=== PATIENT | male | born 1960 | race Caucasian/White ===

== ENCOUNTER → 2016-02-09 | Outpatient (CLI) | payer BC ==
[~2016-02-09] MED LIST: ETOD400T PO; IBUP-103 PO; MULT-506 PO
[2016-02-09 09:24] LABS: HEMATOCRIT 44.6 % (42-52); MEAN CELL VOLUME 87.5 fL (80-100); MEAN CORPUSCULAR HEMOGLOBIN 30.8 pg (25-34); MEAN CORPUSCULAR HGB CONC 35.2 g/dl (32-36); MEAN PLATELET VOLUME 9.7 fL (7.4-10.4); PLATELET COUNT 312 K/uL (130-400)
[2016-02-09 09:35] LABS: ALT/SGPT 36 U/L (12-78); BLOOD UREA NITROGEN 19 mg/dl (7-18); BUN/CREATININE RATIO 16.8 (10-20); CALCIUM 8.8 mg/dl (8.5-10.1); CARBON DIOXIDE 28 mmol/L (21-32); CHLORIDE 102 mmol/L (98-107); CHOLESTEROL 218 mg/dl (0-200); GLUCOSE 95 mg/dl (70-99); POTASSIUM 4.4 mmol/L (3.5-5.1); SODIUM 139 mmol/L (136-145)
[2016-02-09 09:46] LABS: ALB/GLOB RATIO 1.1 (0.9-2); ALKALINE PHOSPHATASE 128 U/L (45-117); AST/SGOT 21 U/L (15-37); CHOLESTEROL/HDL RATIO 4.1; HDL CHOLESTEROL 53 mg/dl; LDL CHOLESTEROL CALCULATED 135 mg/dl; TRIGLYCERIDES 150 mg/dl (0-150); VERY LOW DENSITY LIPOPROT CALC 30 mg/dl
[2016-02-09 09:52] LABS: ESTIMATED AVERAGE GLUCOSE 123 mg/dl; HA1C FLAG Normal (Normal)
== END | disposition home or self-care (01) ==
LOC: C.LAB 07:07
PROVIDERS: ATTEND Internal Medicine Geriatric Medicine
DX: J30.9 Allergic rhinitis, unspecified (principal); Z87.09 Personal history of other diseases of the respiratory system; G47.33 Obstructive sleep apnea (adult) (pediatric); E78.5 Hyperlipidemia, unspecified; R73.9 Hyperglycemia, unspecified; M19.90 Unspecified osteoarthritis, unspecified site; R74.8 Abnormal levels of other serum enzymes

== ENCOUNTER → 2017-03-17 | Outpatient (CLI) | payer OTHER ==
[2017-03-17 18:10] LABS: ALBUMIN 3.8 gm/dl (3.4-5.0); ALT/SGPT 34 U/L (12-78); AST/SGOT 18 U/L (15-37); BLOOD UREA NITROGEN 20 mg/dl (7-18); CALCIUM 8.8 mg/dl (8.5-10.1); CARBON DIOXIDE 28 mmol/L (21-32); CHOLESTEROL 185 mg/dl (0-200); CREATININE 1.01 mg/dl (0.60-1.40); GLUCOSE 94 mg/dl (70-99); SODIUM 134 mmol/L (136-145)
[2017-03-17 18:14] LABS: ALKALINE PHOSPHATASE 117 U/L (45-117); LDL CHOLESTEROL CALCULATED 102 mg/dl; TOTAL PROTEIN 7.2 gm/dl (6.4-8.2)
[2017-03-17 18:27] LABS: HEMOGLOBIN A1C 5.8 % (4.5-5.6)
== END | disposition home or self-care (01) ==
LOC: C.LAB 16:51
PROVIDERS: ATTEND Internal Medicine Geriatric Medicine
DX: Z00.00 Encounter for general adult medical examination without abnormal findings (principal); J30.9 Allergic rhinitis, unspecified; G47.33 Obstructive sleep apnea (adult) (pediatric); E78.5 Hyperlipidemia, unspecified; R73.9 Hyperglycemia, unspecified; M88.9 Osteitis deformans of unspecified bone; I10 Essential (primary) hypertension; J45.30 Mild persistent asthma, uncomplicated

== ENCOUNTER 2021-07-10 06:28 | Observation (INO) ==
--- NOTE | 2021-06-05 11:22 | PAT Medication Instructions ---
Medication Instructions Date of Service June 05, 2021 Home Medications Medication Instructions Recorded fluticasone propionate 44 1 inh INH QAM #31.8 g 01/16/21 mcg/actuation HFA aerosol inhaler (Flovent HFA) losartan 25 mg tablet 25 mg PO QPM #90 tab 03/06/21 albuterol sulfate 90 mcg/actuation 1 - 2 puff INH Q4H PRN #3 inhaler 03/11/21 aerosol inhaler (ProAir HFA) fluticasone propionate 50 1 spray INTNAS QPM #48 g 03/25/21 mcg/actuation nasal spray,suspension (Flonase Allergy Relief) multivitamin (Daily Multi-Vitamin) 1 tab PO QAM omega-3 fatty acids 1,000 mg capsule (Fish Oil Concentrate) 1,000 mg PO QAM fluticasone propionate 44 mcg/actuation HFA aerosol inhaler (Flovent HFA) 1 inh INH QAM losartan 25 mg tablet 25 mg PO QPM albuterol sulfate 90 mcg/actuation aerosol inhaler (ProAir HFA) 1 - 2 puff INH Q4H PRN fluticasone propionate 50 mcg/actuation nasal spray,suspension (Flonase Allergy Relief) 1 spray INTNAS QPM STOP taking 2 weeks before surgery omega-3 fatty acids 1,000 mg capsule (Fish Oil Concentrate) 1,000 mg PO QAM DO NOT take the morning of surgery multivitamin (Daily Multi-Vitamin) 1 tab PO QAM Take morning of surgery With a small sip of water, OTHERWISE NOTHING TO EAT OR DRINK AFTER MIDNIGHT: fluticasone propionate 44 mcg/actuation HFA aerosol inhaler (Flovent HFA) 1 inh INH QAM albuterol sulfate 90 mcg/actuation aerosol inhaler (ProAir HFA) 1 - 2 puff INH Q4H PRN (use if needed; please bring with you to hospital day of surgery if possible) Take evening before surgery losartan 25 mg tablet 25 mg PO QPM albuterol sulfate 90 mcg/actuation aerosol inhaler (ProAir HFA) 1 - 2 puff INH Q4H PRN (if needed) fluticasone propionate 50 mcg/actuation nasal spray,suspension (Flonase Allergy Relief) 1 spray INTNAS QPM Other Notes If you have any questions please call us at [phone] or [phone] or [phone] or [phone]
--- NOTE | 2021-06-09 13:18 | Anesthesiology Consultation ---
Date of Service June 09, 2021 Assessment & Plan (1) Encounter for pre-operative examination: COVID screening: Per assessment on 06/09: No known COVID-19 positive contacts or current COVID-19 related symptoms. Travel screen negative. Patient vaccinated. Surgeon arranging preop COVID testing. Awaiting results. Chart Review Chart Review: Acceptable Risk for Surgery and Patient seen in Pre Admission Testing Teaching & Discussion Pre-Anesthesia Teaching/Discussion Notes: Instructed NPO after midnight before surgery,except medications with 15 cc of water. Medication instructions pro vided according to the PAT guidelines. History Surgery Operation Date: 07/10/21 10:40 Proposed Procedures p Left Total Knee Arthroplasty - Raman Freire, Height/Weight Height: 6 ft 3.5 in Weight: 115.6 kg Allergies Allergy/AdvReac Type Severity Reaction Status Date / Time Aminoglycosides AdvReac Mild skin Verified 06/05/21 08:00 irritation bacitracin AdvReac Mild skin Verified 06/05/21 08:00 irritation neomycin AdvReac Mild skin Verified 06/05/21 08:00 irritation polymyxin B AdvReac Mild skin Verified 06/05/21 08:00 irritation Medications Home Medications Medication Instructions Recorded Confirmed Last Taken multivitamin (Daily Multi-Vitamin) 1 tab PO QAM 07/11/18 06/05/21 04/12/20 omega-3 fatty acids 1,000 mg 1,000 mg PO QAM 05/30/20 06/05/21 Unknown capsule (Fish Oil Concentrate) fluticasone propionate 44 1 inh INH QAM #31.8 g 01/16/21 06/05/21 Unknown mcg/actuation HFA aerosol inhaler (Flovent HFA) losartan 25 mg tablet 25 mg PO QPM #90 tab 03/06/21 06/05/21 Unknown albuterol sulfate 90 mcg/actuation 1 - 2 puff INH Q4H PRN #3 inhaler 03/11/21 06/05/21 Unknown aerosol inhaler (ProAir HFA) fluticasone propionate 50 1 spray INTNAS QPM #48 g 03/25/21 06/05/21 Unknown mcg/actuation nasal spray,suspension (Flonase Allergy Relief) Past Medical History Medical History Asthma Back pain s/p fall (on ice) Hx of squamous cell carcinoma Hypertension Localized osteoarthritis of left knee Prediabetes Diet control Sleep apnea CPAP (compliant) Exercise / Class Metabolic Activity II 4-5 Yardwork/Stairs/Walk up hill (one FS (no CP, no SOB)) Past Family History Family History Mother COPD (chronic obstructive pulmonary disease) Sister Breast cancer Diabetes Other Asthma Hyperlipemia Hypertension No family history of adverse response to anesthesia Thyroid disorder Denies family history of Ovarian cancer Prostate cancer Myocardial infarction Colorectal cancer Past Surgical History Surgical History History of colonoscopy History of wisdom tooth extraction Past Anesthesia History No Hx of Anesthesia Complications and No Family Hx of Anesthesia Complications History of PONV No Hx of PONV and No Hx of Motion Sickness Social History Smoking Status: Never smoker Do You Dip or Chew Tobacco: No Hx Alcohol Use: Yes Alcohol type: beer, wine and hard liquor alcohol intake frequency: a few times a week Hx Substance Use: No substance use type: does not use Review of Systems Patient denies chest pain, shortness of breath, dyspnea on exertion, fever, chills, cough, wheezing, palpitations. Physical Exam Vital Signs VITALS BP 127/74 P 72 TEMP 98.5 SP02 94%RA RESP 16 PHYSICAL Full cervical extension range of motion. Full TMJ range of motion. TMD 3.5 finger breaths Mallampati Score 3 Dentition: intact, + crowns Lungs: clear throughout to auscultation Cardiac: regular rate and rhythm, no murmurs noted Spine: normal Carotid arteries: negative bruit Extremities: no edema Lab Results Anesthesia Preop Results Results Anesthesia Widget: WBC 8.07 K/uL (4.8-10.8) 06/09/21 Hgb 14.9 g/dL (14.0-18.0) 06/09/21 Hct 44.0 % (42-52) 06/09/21 Plt 350 K/uL (130-400) 06/09/21 Na 139 mmol/L (136-145) 06/09/21 K 4.1 mmol/L (3.5-5.1) 06/09/21 Cl 102 mmol/L (98-107) 06/09/21 CO2 30 mmol/L (21-32) 06/09/21 BUN 19 mg/dl (6-23) 06/09/21 Creat 1.02 mg/dl (0.6-1.4) 06/09/21 Glucose Level 101 mg/dl (70-99(Fasting)) H 06/09/21 PT 10.3 Seconds (9.0-12.0) 06/09/21 PTT 26.8 Seconds (21.0-31.0) 06/09/21 INR 1.0 (0.9-1.1) 06/09/21 Blood Type A Positive 06/09/21 Antibody Screen NEGATIVE 06/09/21 Testing Electrocardiogram Date: 06/09/21 NSR at 67bpm. LAFB. unconfirmed report. Chest X-Ray Date: 06/09/21 FINDINGS: PA and lateral chest radiographs are obtained. No prior studies are available for comparison at the time of dictation. The heart is top normal for projection noting atherosclerotic calcification of the thoracic aorta. There is mild bibasilar scarring/atelectasis. A punctate calcified granulomas are suspected. The lungs and pleural spaces are otherwise clear. There is no pneumothorax. The bony thorax appears intact. IMPRESSION: No active disease in the chest.
--- NOTE | 2021-07-09 14:09 | History & Physical Report ---
Date of Service July 09, 2021 Assessment & Plan (1) Localized osteoarthritis of left knee: We will proceed with a left total knee arthroplasty. Postoperatively he will be started on aspirin for DVT prophylaxis and kept overnight in the hospital for postoperative medical management. He plans to do outpatient physical therapy at [facility] upon discharge. History of Present Illness Chief Complaint: Osteoarthritis of the left knee. Primary Care Provider: Raman JaegerDO Jackson is a pleasant 60-year-old male who has been dealing with chronic worsening left knee pain. He has been following up with my partner Dr. Hawkins. X-rays have been diagnostic for advanced osteoarthritis of the left knee. He has tried injections. He has done some exercises and therapy. He has been taking anti- inflammatories without relief. He has done activity modifications. He is unable to do activities he enjoys. He has elected proceed with a left total knee arthroplasty.. Allergies Allergy/AdvReac Type Severity Reaction Status Date / Time Aminoglycosides AdvReac Mild skin Verified 06/05/21 08:00 irritation bacitracin AdvReac Mild skin Verified 06/05/21 08:00 irritation neomycin AdvReac Mild skin Verified 06/05/21 08:00 irritation polymyxin B AdvReac Mild skin Verified 06/05/21 08:00 irritation Home Medications Medication Instructions Recorded Confirmed Type multivitamin (Daily Multi-Vitamin) 1 tab PO QAM 07/11/18 06/05/21 History omega-3 fatty acids 1,000 mg 1,000 mg PO QAM 05/30/20 06/05/21 History capsule (Fish Oil Concentrate) fluticasone propionate 44 1 inh INH QAM #31.8 g 01/16/21 06/05/21 Rx mcg/actuation HFA aerosol inhaler (Flovent HFA) losartan 25 mg tablet 25 mg PO QPM #90 tab 03/06/21 06/05/21 Rx albuterol sulfate 90 mcg/actuation 1 - 2 puff INH Q4H PRN #3 inhaler 03/11/21 06/05/21 Rx aerosol inhaler (ProAir HFA) fluticasone propionate 50 1 spray INTNAS QPM #48 g 03/25/21 06/05/21 Rx mcg/actuation nasal spray,suspension (Flonase Allergy Relief) Past Med/Surg History Medical History Asthma Back pain s/p fall (on ice) Hx of squamous cell carcinoma Hypertension Localized osteoarthritis of left knee Prediabetes Diet control Sleep apnea CPAP (compliant) Surgical History History of colonoscopy History of wisdom tooth extraction Family History Mother COPD (chronic obstructive pulmonary disease) Sister Breast cancer Diabetes Other Asthma Hyperlipemia Hypertension No family history of adverse response to anesthesia Thyroid disorder Denies family history of Ovarian cancer Prostate cancer Myocardial infarction Colorectal cancer Social History Smoking Status: Never smoker Second Hand Exposure: Yes (MOTHER SMOKED); Hx Alcohol Use: Yes Alcohol type: beer, wine and hard liquor Alcohol Intake Frequency Comment: SOCIALLY Hx Substance Use: No Preferred Language: [place] Communication Ability: Effective Visual Impairment: Limited Hearing Ability: Normal Biomedical Engineering Technician Required: No Beliefs That Will Affect Care: Pentecostal Pentecostal Beliefs: CONGREGATIONAL marital status: Current Living Situation: Spouse current occupational status: employed current occupation: [employer] How many Children do You have: 2 Feels Safe at Home: Yes Childhood Exposure to Second-Hand Smoke: Yes caffeine: Yes (coffee, tea) Dental Care, Regularly: Yes Physical Activity Frequency: Daily Seatbelt Use: always Sunscreen Use: Yes Assistive Devices: Brace/Splint/Immobilizer, Contacts, CPAP and Glasses Review of Systems All systems reviewed & are unremarkable except as noted in HPI & below. Physical Exam On physical examination of the left knee, he has a slight varus deformity. He has tenderness palpation of the distal medial femoral condyle and over the medial joint line. Constitutional WD/WN, vitals as above Eyes PERRL, conjunctivae normal, anicteric sclerae ENMT external ear and nose normal, oropharynx normal Neck trachea midline, no thyromegaly Respiratory normal respiratory effort Cardiovascular RRR, no murmur, no edema Gastrointestinal (Abdomen) normal bowel sounds, soft, nontender, no hepatosplenomegaly Psychiatric A+Ox3, euthymic affect Results & Data Results & Data Laboratory Results . Diagnostic Findings X-rays of the left knee show advanced osteoarthritis with joint space narrowing, osteophyte formation, and [id number] articulation. PG Care Time/CCT Total # of Minutes Spent Total Time Spent with Patient: Total time spent is greater than 50% in coordination of care (as documented) at patient's floor/unit and/or counseling patient: Coding Level of Care Code None Diagnoses Localized osteoarthritis of left knee M17.12
--- NOTE | 2021-07-10 06:22 | History & Physical Bridge Note ---
Date of Service July 10, 2021 History & Physical Bridge Note I have examined the patient, reviewed the History & Physical and in the interval since the performance of the History & Physical I have noted the following changes of clinical significance: no changes noted
[~2021-07-10 06:28] MED LIST changes: +ACETAMINOPHEN 500 MG TAB PO SCH; -ETOD400T PO; +FAMOTIDINE 20 MG TAB PO SCH; +GABAPENTIN 600 MG DOSE PO SCH; -IBUP-103 PO; +Ketorolac (*for OR use only*) 30 MG, dexAMETHasone 4 MG, KETAMINE HCL (**OR use only) 1... INFIL SCH; +LR 500ML BOLUS, THEN 15ML/HR IV SCH; +LR 60ML/HR IV SCH; -MULT-506 PO; +Scopolamine 1 MG TDSY TD SCH; +TRANEXAMIC ACID 1,000 MG **IV Intra-op IV SCH; +TRANEXAMIC ACID 1,000 MG **IV Pre-op IV SCH; +TRANEXAMIC ACID 100 MG/ML 10 ML VIAL IV STA; +ceFAZolin 2000MG 2,000 MG/15 ML SYR IV SCH; +dexAMETHasone 4 MG TAB PO SCH
[2021-07-10] MEDS ORDERED: PROPOFOL IV EMULSION 10 MG/ML 20 ML VIAL IV ONE ×3 (06:41→09:21)
[2021-07-10] MEDS ORDERED: fentaNYL citrate 100 MCG/2 ML VIAL ONE (06:42)
[2021-07-10] MEDS ORDERED: DEXAMETHASONE SOD INJ 4 MG/ML VIAL ONE ×2 (06:42→06:46)
[2021-07-10] MEDS ORDERED: ONDANSETRON INJ 2 MG/ML 2 ML VIAL ONE (06:42)
[2021-07-10] MEDS ORDERED: MIDAZOLAM HCL 1 MG/ML 2ML VIAL ONE ×2 (06:42→06:49)
[2021-07-10] MEDS ORDERED: ORTHO JOINT ANESTHETIC ONE (07:08)
[2021-07-10] MEDS ORDERED: ROPIVACAINE 0.5% 5 MG/ML 30 ML VIAL ONE (07:09)
[2021-07-10] MEDS ORDERED: BUPIVACAINE 0.5 % 5 MG/1 ML PF 10ML VIAL ONE (07:10)
[2021-07-10] MEDS ORDERED: EPINEPHrine INJ 1 MG/ML AMP ONE (07:10)
[2021-07-10] MEDS ORDERED: LABETALOL HCL IV 5 MG/ML 20ML IV PRN (07:37)
[2021-07-10] MEDS ORDERED: HYDROmorphone INJ 1 MG/ML SYRINGE IV PRN (07:37)
[2021-07-10] MEDS ORDERED: HYDROmorphone INJ 2 MG/ML SYR/VIAL IV PRN (07:37)
[2021-07-10] MEDS ORDERED: ONDANSETRON INJ 2 MG/ML 2 ML VIAL IV PRN ×2 (07:37→11:57)
[2021-07-10] MEDS ORDERED: PHENYLEPHRINE 100MCG/ML 5ML SYR IV PRN (07:37)
[2021-07-10] MEDS ORDERED: ATROPINE SULFATE 0.1 MG/ML 10ML SYR IV PRN (07:37)
[2021-07-10] MEDS ORDERED: fentaNYL citrate 100 MCG/2 ML VIAL IV PRN (07:37)
[2021-07-10] MEDS ORDERED: ePHEDrine sulfate 50 MG/ML AMP IV PRN (07:37)
[2021-07-10] MEDS ORDERED: PHENYLEPHRINE HCL 10 MG/ML VIAL ONE (08:43)
[2021-07-10] MEDS ORDERED: ePHEDrine sulfate 50 MG/ML AMP ONE ×2 (08:43→08:59)
--- NOTE | 2021-07-10 09:30 | Operative Report ---
PG Post Operative Report Pre & Post Diagnosis Operation Date: 07/10/21 08:00 Pre-Op Diagnosis: Left Knee Osteoarthritis Post-Op Diagnosis: Left Knee Osteoarthritis I identified the patient and participated in the time-out.: Yes Procedure Operation Date: 07/10/21 08:00 Actual Procedures p Left Total Knee Replacement(Left) - Raman Freire DO Surgeon Raman Freire DO Traveling Phlebotomist Raman Lugo PAC Estimated Blood Loss 20 Findings Consistent with Post-Op Diagnosis Specimens Left femoral and tibial bone Complications none Disposition Disposition: Recovery Room Indications Manuel is a pleasant 60-year-old male who is been dealing with chronic increasing left knee pain. X-rays and clinical examination were diagnostic for advanced arthritis of the left knee. After failing conservative treatment, he elected to proceed with a left total knee arthroplasty. Description of Procedure Implants used: I used a Laurie Persona total knee arthroplasty system with a size 11 standard femur, G tibia, 34 oval patella, and a size 10 medial congruent polyethylene bearing. All components were cemented in place with Biomet cement. Manuel arrived [facility] for the above procedure. He was seen in the preoperative holding area and the operative extremity was identified and signed. He was given a preoperative antibiotic, TXA, a spinal anesthetic and an adductor nerve block. He was taken back to the operating room and laid on the table in supine position. He was given basic sedation. The operative knee was then prepped and draped in sterile fashion. A timeout was done, and the patient and the operative extremity was properly identified. A midline incision was made directly over the patella. Dissection was taken down to the extensor mechanism. A subvastus arthrotomy was used. The medial retinaculum was released and the fat pad was mostly excised. The knee was flexed and the ACL, PCL, and meniscus were removed. A drill was sent down the center of the femoral canal followed by an intramedullary estella. Off that estella a distal femoral cutting block was placed. 9 mm was resected off the distal femur at 5 of valgus. A posterior referencing AP sizing guide was then placed on the distal femur. The femur measured to be a size 11 standard. 2 drill holes were placed in 3 of external rotation. A 4-in-1 cutting block was then impacted into place. Anterior, posterior, and chamfer cuts were then made. The proximal tibia was then exposed. An external tibial alignment guide was placed. A tibial cut guide was then anchored in place and the proximal tibia was then resected. The posterior aspect of the knee was then opened up and any additional meniscus fragments and osteophytes were removed. The tibia measured to be a size G. The tibial plate was then placed in the appropriate rotation and the tibia was drilled and punched. Trial components were then placed. I used a size 10 medial congruent polyethylene insert. The knee was brought through a full range of motion and felt to be stable. The peg holes for the femoral component were then drilled. The patella was then everted and 9 mm was resected off the posterior aspect of the patella. The patella measured to be a size 34 oval. 3 peg holes were then drilled. A trial patella was placed. The knee was once again brought through a full range of motion and felt to be stable. Trial components were then removed. The surrounding soft tissues were injected with 100 cc of an orthopedic pain control cocktail. All components were then cemented into place with Biomet cement. The final polyethylene insert was then snapped into place. Once cement was dry the tourniquet was deflated. Hemostasis was obtained. A dilute betadyne lavage was then done for 3 minutes. The joint was then irrigated with normal saline solution. The subvastus arthrotomy was then closed with #1 Vicryl suture. The skin was closed with 2-0 Vicryl, 3-0V lock suture, and juan carlos. A soft compressive dressing was placed. He was then transferred to a hospital bed and taken to the postanesthesia care unit in stable condition. He tolerated the procedure well. Raman Lugo PA-C, was present for the entire procedure. He was critical for patient positioning, prepping, draping, retraction exposure, wound closure and application of sterile dressing. I attest to the content of the Intraoperative Record and any orders documented therein. Any exceptions are noted below.
--- NOTE | 2021-07-10 10:32 | Anesthesiology Progress Note ---
Date of Service July 10, 2021 Anesthesia Post Procedure Vital Signs Vital Signs: Temp Pulse Pulse Resp BP Pulse Ox 07/10/21 10:30 36.3 C L 62 14 109/66 98 07/10/21 10:20 62 13 108/62 96 07/10/21 10:10 65 15 108/60 90 07/10/21 10:00 66 16 110/65 92 07/10/21 09:54 36.4 C L 68 20 108/63 98 07/10/21 06:47 36.8 C 63 18 138/86 96 Transfer of Care Handoff Completed per policy Notes Mental Status: alert / awake / arousable Patient Amnestic to Procedure: Yes Nausea / Vomiting: adequately controlled Pain: adequately controlled Airway Patency, RR, SpO2: stable & adequate BP & HR: stable & adequate Hydration State: stable & adequate Neuraxial Anesthesia: was administered and sensory block is resolving Anesthetic Complications: no major complications apparent and Pt Satisfied with anesthetic care
--- NOTE | 2021-07-10 10:34 | XRay Report ---
XR knee LT 1 or 2V routine HISTORY: 60 years-old Male Surgical Post Op left knee total joint arthroplasty COMPARISON: Left knee radiographs 06/19/2020 TECHNIQUE: 2 views of the left knee FINDINGS: Left knee total joint arthroplasty with patellar resurfacing. Anterior midline skin juan carlos are noted along with expected postoperative soft tissue swelling and deep tissue air. No definite acute fractu re. Subcentimeter bone fragments project over the infrapatellar distribution. No unexpected opaque fo reign bodies. IMPRESSION: Left knee total joint arthroplasty with expected postoperative changes. ACT 112: Negative or not required by law. The above report was generated using voice recognition software. It may contain grammatical, syntax o r spelling errors. Electronically signed by: Jc Alcaraz M.D. 07/10/2021 10:33 AM
[2021-07-10] MEDS ORDERED: MAGNESIUM HYDROXIDE SUSP 30 ML UDC PO PRN (11:57)
[2021-07-10] MEDS ORDERED: oxyCODONE HCL IR 5 MG TAB (IMMEDIATE RELEASE) PO PRN (11:57)
[2021-07-10] MEDS ORDERED: METOCLOPRAMIDE HCL INJ 5 MG/ML 2 ML VIAL IV PRN (11:57)
[2021-07-10] MEDS ORDERED: bisacodyL 10 MG SUPP PR PRN (11:57)
[2021-07-10] MEDS ORDERED: HYDROmorphone INJ 0.5 MG/0.5 ML SYR IV PRN (11:57)
[2021-07-10] MEDS ORDERED: NALOXONE HCL 0.4 MG/1 ML VIAL/CARP IV PRN (11:57)
[2021-07-10] MEDS ORDERED: ALBUTEROL HFA 8 GM INHALER INH PRN (12:40)
[2021-07-10] MEDS: SODIUM CHLORIDE 0.9% 1000ML 1,000 ML IV SCH ×2 (14:54→21:53)
[2021-07-10] MEDS: KETOROLAC 30 MG/ML VIAL IV SCH ×2 (15:30→19:55)
[2021-07-10] MEDS: ACETAMINOPHEN 500 MG TAB PO SCH ×2 (15:31→22:16)
[2021-07-10] MEDS ORDERED: Scopolamine CHECK PATCH PLACEMENT SCH (16:00)
[2021-07-10] MEDS: ceFAZolin 2000MG 2,000 MG/15 ML SYR IV SCH (16:37)
[2021-07-10] MEDS ORDERED: LOSARTAN POTASSIUM 25 MG TAB PO SCH (21:00)
[2021-07-10] MEDS ORDERED: SENNA 8.6 MG TAB PO SCH (21:00)
[2021-07-10] MEDS ORDERED: FLUTICASONE PROPIONATE NA SPR 16 GM BTL SCH (21:00)
[2021-07-10] MEDS: ASPIRIN 81 MG ECTAB PO SCH (21:49)
[2021-07-10] MEDS: DOCUSATE SODIUM 100 MG CAP PO SCH (21:53)
[2021-07-11] MEDS: KETOROLAC 30 MG/ML VIAL IV SCH ×2 (00:40→06:19)
[2021-07-11] MEDS: ceFAZolin 2000MG 2,000 MG/15 ML SYR IV SCH (00:40)
[2021-07-11] MEDS: ACETAMINOPHEN 500 MG TAB PO SCH (06:18)
--- NOTE | 2021-07-11 07:20 | Orthopedic Progress Note ---
Date of Service July 11, 2021 Assessment & Plan (1) Status post left knee replacement: Overall he is doing well. Is not having much pain in the left knee. He will be seen by physical therapy today for ambulation and range of motion exercises. He is on aspirin for DVT prophylaxis. He can be discharged home later today. He will follow-up with orthopedics in 2 weeks. Vishal Jackson was seen and examined at bedside this morning. Overall is doing very well. Is not having much pain in the left knee. Has been up and ambulating the hallways. He has no complaints.. Review of Systems All systems reviewed & are unremarkable except as noted in HPI & below. Physical Exam On physical examination of the left knee, the dressing is clean and dry. His leg is out full extension. He has active dorsiflexion and plantarflexion of his left ankle.. Results & Data Results & Data Laboratory Results . Diagnostic Findings Postoperative x-rays of the left knee show the prosthesis to be in anatomic alignment without any evidence of fracture, desiccation, or loosening. PG Care Time/CCT Total # of Minutes Spent Total Time Spent with Patient: Total time spent is greater than 50% in coordination of care (as documented) at patient's floor/unit and/or counseling patient: Coding Level of Care Code 25169 Post Operative Follow-Up Diagnoses Status post left knee replacement Z96.652
--- NOTE | 2021-07-11 07:21 | Discharge Summary ---
Date of Service July 11, 2021 Admission HPI (Per Admitting) Manuel is a pleasant 60-year-old male who has been dealing with chronic worsening left knee pain. He has been following up with my partner Dr. Hawkins. X-rays have been diagnostic for advanced osteoarthritis of the left knee. He has tried injections. He has done some exercises and therapy. He has been taking anti- inflammatories without relief. He has done activity modifications. He is unable to do activities he enjoys. He has elected proceed with a left total knee arthroplasty.. Admission Exam (Per Admitting) On physical examination of the left knee, he has a slight varus deformity. He has tenderness palpation of the distal medial femoral condyle and over the medial joint line. Principal Diagnosis Same as "Discharge Diagnosis" noted below under Discharge Instructions. Discharge Exam On physical examination of the left knee, the dressing is clean and dry. His leg is out full extension. He has active dorsiflexion and plantarflexion of his left ankle.. Discharge Data Procedures Performed Operation Date: 07/10/21 08:00 Actual Procedures p Left Total Knee Replacement(Left) - Raman Freire DO Ordered Studies 07/10/21 05:00 US - OR guided needle placemen Routine Hospital Course (1) Status post left knee replacement: On July 10, 2021 Manuel arrived at [facility] and underwent a left knee replacement without complication. He had a spinal anesthetic. Postoperatively he was started on aspirin for DVT prophylaxis and transferred to the general orthopedic floors. His hospital course was uneventful. On postop day #1, his vital signs were stable and his pain was well controlled. He was able to participate well with physical therapy doing ambulation and range of motion exercises. He was then discharged home. He will follow-up with orthopedics in 2 weeks. PG Care Time/CCT Total # of Minutes Spent Total Time Spent with Patient: Total time spent is greater than 50% in coordination of care (as documented) at patient's floor/unit and/or counseling patient: Discharge Plan Discharge Items Patient Disposition: Home - Home Health Services Reason For Visit: Left Knee Osteoarthritis Discharge Diagnosis: Left knee replacement Activity: Per Instructions section Non-emergency contact: Surgeon Call non-emergency contact if: your wound has increased redness and your wound has increased drainage Follow-up/Referrals: Raman Jaeger DO [Primary Care Provider] - Diet: Regular Addtl Attending Provider Instructions: Activity and Therapy Recommendations: * If you are using [facility] then therapy will be provided at your home until they feel you have accomplished all of your goals. * If you are using [facility] then Physical Therapy will be provided until they feel you are ready to start Outpatient Physical Therapy. * If you are not using home therapy then Outpatient Physical Therapy should start about 3-5 days from your day of surgery. Therapy will last about 6-10 weeks * It is important not to put a pillow under your knee when you are relaxing or sleeping. It is just as important to make sure you are getting your knee perfectly straight as it is to regain your knee bend. * You were shown a series of exercises in the hospital. Do these exercises three times each day including the exercises you were shown in physical therapy. * Get up and walk several times each day. For the first four weeks, try not to stand or walk for more than one hour at a time. If you do stand or walk for more than one hour, you will not hurt anything, but your leg will likely swell. * As you feel comfortable, you may change from the walker or crutches to a cane and then to independent walking. Medications: * Narcotic You will likely be sent home from the hospital with a prescription for the narcotic pain medication that worked best throughout your stay. * Aspirin Most patients will be required to take Aspirin 81mg twice a day for 6 weeks after surgery. This is obtained [id number] and a prescription is not necessary. * Other medications may be prescribed for specific circumstances. If you have any questions, please call the office at . * Resume previous home medications unless otherwise instructed TEDs/Elastic Stockings: The white elastic stockings help limit swelling and prevent blood clots from forming in your legs.~ The more you wear them, the more they work. Wear them for six weeks. Dressing Care: The dressing can be changed after physical therapy on postop day #1. Daily dry dressing changes for a few days, especially if the incision is still draining some. If the incision is not draining then you may leave the juan carlos open to air. If there is a little bit of drainage or if the juan carlos are getting stuck on your clothing then cover the incision with a dry dressing. The juan carlos will be removed at your 2 week follow-up appointment. Showering: You may shower 5 days from the day of surgery as long as the incision is no longer draining. You may shower with the juan carlos exposed. Let soapy water run over the juan carlos and pat them dry. Do not scrub or soak the incision. Things To Watch For: * Drainage from the incision site that occurs more than one week after your surgery. * Increased redness at the incision site. * Fever above 102 degrees Fahrenheit. * Unusual chest pain or shortness of breath. * Call [facility] at with any of the above problems Follow-Up Visit: Follow-up with Dr. Freire's PA (Raman Lugo) 2-3 weeks after your day of surgery. He will remove your juan carlos and answer any questions. If you have any additional questions or concerns, Dr Freire is usually in the office at the same time and will be available An appointment was probably scheduled when you signed-up for surgery in the office. If you have any questions call Office Instructions: More detailed instructions as well as Frequently Asked Questions were provided in a folder by our office when you signed-up for surgery. Please review these instructions when you get home. If you have any further questions or concerns, please feel free to call the office at [phone] Pending Studies at Discharge: No Stand-Alone Forms: My [facility] Medications and DC Order Prescriptions: New oxycodone-acetaminophen 5-325 mg tablet 1 tab PO Q6H PRN (Reason: pain) Qty: 30 RF: 0 celecoxib [Celebrex] 200 mg capsule 200 mg PO BID PRN (Reason: pain) Qty: 28 RF: 0 aspirin 81 mg Tablet,Delayed Release (Dr/Ec) 81 mg PO BID 42 Days Qty: 0 RF: 0 Continued Flovent HFA 44 mcg/actuation HFA aerosol inhaler 1 inh INH QAM Qty: 31.8 RF: 1 losartan 25 mg tablet 25 mg PO QPM Qty: 90 RF: 3 albuterol sulfate [ProAir HFA] 90 mcg/actuation HFA aerosol inhaler 1 - 2 puff INH Q4H PRN (Reason: sob) Qty: 3 RF: 3 fluticasone propionate [Flonase Allergy Relief] 50 mcg/actuation spray,suspension 1 spray INTNAS QPM Qty: 48 RF: 3 omega-3 fatty acids [Fish Oil Concentrate] 1,000 mg capsule 1,000 mg PO QAM RF: 0 multivitamin [Daily Multi-Vitamin] tablet 1 tab PO QAM RF: 0 Discharge Orders: Discharge Order (Routine); Ordered 07/11/21 Ordered By: Raman Freire Admission Data Admit Date/Time: 07/10/21 09:55 Attending Provider: Raman Freire Admit Provider: Raman Freire Primary Care Provider: Raman Jaeger
[2021-07-11] MEDS: ASPIRIN 81 MG ECTAB PO SCH (08:46)
[2021-07-11] MEDS: DOCUSATE SODIUM 100 MG CAP PO SCH (08:48)
[2021-07-11] MEDS ORDERED: FLUTICASONE FUROATE 100MCG 14 PUFFS/INHALER INH SCH (09:00)
[2021-07-11] MEDS ORDERED: MULTIVITAMIN TAB PO SCH (09:00)
== END 2021-07-11 11:35 | disposition home health service (06) ==
LOC: PACUINP 06:28 → ASU 06:28 → 3E 13:36